=== PATIENT | female | born 1965 | race Caucasian/White ===

== ENCOUNTER 2019-09-21 03:22 | Emergency (ER) | payer OTHER ==
[~2019-09-21] VITALS: Ht 177.8 cm; Wt 118.0 kg
[2019-09-21] MEDS ORDERED: KETOROLAC 30 MG/1 ML ONE (03:34)
[2019-09-21] MEDS ORDERED: ONDANSETRON 2MG/ML, 2ML ONE (03:34)
[2019-09-21] MEDS ORDERED: HYDROmorphone 1 MG/ML, 1ML INJ ONE ×3 (03:34→06:39)
[2019-09-21] MEDS: HYDROmorphone 2 MG/ML, 1ML IVPush PRN ×2 (03:51→05:30)
--- NOTE | 2019-09-21 03:56 | NUR ---
Patient presents to ER c/o acute L quad abd pain x 2 hours. +N/V. Denies diarrhea. Patient is in obvious distress. Respirations even and unlabored. Patient is screaming upon entering room.
[2019-09-21] MEDS ORDERED: SODIUM CHLORIDE FLUSH 10ML SYR IVF ONE (04:00)
[2019-09-21] MEDS ORDERED: KETOROLAC 30 MG/1 ML IVPush ONE (04:00)
[2019-09-21] MEDS ORDERED: ONDANSETRON 2MG/ML, 2ML IVPush ONE (04:00)
[2019-09-21 04:01] LABS: MEAN CORPUSCULAR HEMOGLOBIN 27.1 pg (27.0-34.8); MEAN CORPUSCULAR HGB CONC 32.9 g/dL (32.4-35.8); MEAN CORPUSCULAR VOLUME 82.3 fL (80-100); MEAN PLATELET VOLUME 9.2 fL (7.4-10.4); PLATELET COUNT 253 x10^3/uL (130-400); RED BLOOD COUNT 5.45 x10^6/uL (3.82-5.3); RED CELL DISTRIBUTION WIDTH 14.9 % (9.6-15.2)
[2019-09-21 04:13] LABS: ALANINE AMINOTRANSFERASE 45 U/L (12-78); ALBUMIN 4.1 g/dL (3.4-5.0); ANION GAP 11 mmol/L (5-15); CALCIUM 9.6 mg/dL (8.5-10.1); CHLORIDE 99 mmol/L (98-107); CREATININE 1.18 mg/dL (0.55-1.02)
[2019-09-21 04:15] LABS: ALKALINE PHOSPHATASE 122 U/L (45-117); BILIRUBIN,TOTAL 0.8 mg/dL (0.2-1.0); TOTAL PROTEIN 8.4 g/dL (6.4-8.2)
[2019-09-21 04:23] LABS: BASOPHILS # (AUTO) 0.02 x10^3/uL (0-0.1); BASOPHILS % (AUTO) 0 % (0-1); EOSINOPHILS # (AUTO) 0.04 x10^3/uL (0-0.4); EOSINOPHILS % (AUTO) 0 % (1-7); LYMPHOCYTES # (AUTO) 0.57 x10^3/uL (1-3.4); LYMPHOCYTES % (AUTO) 4 % (22-44); MD SCAN; MONOCYTES # (AUTO) 0.05 x10^3/uL (0.2-0.8); MONOCYTES % (AUTO) 0 % (2-9); NEUTROPHILS # (AUTO) 12.75 x10^3/uL (1.8-6.8); NEUTROPHILS % (AUTO) 95 % (42-75)
[2019-09-21] MEDS ORDERED: SODIUM CHLORIDE 0.9% 1,000ML IVBOLUS ONE (05:00)
[2019-09-21 05:47] LABS: MICROSCOPIC NOT IND
[2019-09-21] MEDS ORDERED: HYDROmorphone 1 MG/ML, 1ML INJ IV STA (06:37)
--- NOTE | 2019-09-21 06:53 | NUR ---
BEDSIDE REPORT FROM LIZZETTE FELIX, PT RESTING IN [facility] WITH FAMILY AT BEDSIDE. ON MONITOR, CALL LIGHT WITHIN REACH.
[2019-09-21 06:59] VITALS: BP 168/79
--- NOTE | 2019-09-21 07:50 | NUR ---
MD AT BEDSIDE TO EXPLAIN DX AND POC TO PT
== END 2019-09-21 08:08 | disposition home or self-care (01) ==
LOC: ED 04:47
DX: E11.65 Type 2 diabetes mellitus with hyperglycemia (principal); R10.32 Left lower quadrant pain; R19.7 Diarrhea, unspecified; R11.2 Nausea with vomiting, unspecified; R10.9 Unspecified abdominal pain; Z90.710 Acquired absence of both cervix and uterus
CPT/HCPCS: 36415; 74176; 80053; 81003; 83690; 85025; 96361; 96374; 96375; 96376; 99284; J1170; J1885; J2405; J7030

== ENCOUNTER 2019-09-24 00:26 | Inpatient (IN) | payer OTHER ==
[~2019-09-24] VITALS: Ht 177.8 cm; Wt 117.5 kg
[2019-09-24] MEDS ORDERED: ONDANSETRON 2MG/ML, 2ML ONE (00:53)
[2019-09-24] MEDS ORDERED: MORPHINE SULFATE 4 MG/ML, 1ML ONE ×2 (00:53→08:45)
[2019-09-24] MEDS ORDERED: ONDANSETRON 2MG/ML, 2ML IVPush ONE (01:00)
[2019-09-24] MEDS: MORPHINE SULFATE 4 MG/ML, 1ML IVPush PRN ×2 (01:11→08:50)
--- NOTE | 2019-09-24 01:32 | NUR ---
PT NOTED TO HAVE O2 SAT IN 88%, 2 L O2 VIA NC APPLIED TO PT, SATURATIONS INCREASED TO 96%
[2019-09-24 01:34] LABS: ALANINE AMINOTRANSFERASE 34 U/L (12-78); ALBUMIN 2.1 g/dL (3.4-5.0); ANION GAP 14 mmol/L (5-15); CALCIUM 7.9 mg/dL (8.5-10.1); CHLORIDE 94 mmol/L (98-107); CREATININE 2.95 mg/dL (0.55-1.02)
[2019-09-24 01:36] LABS: ALKALINE PHOSPHATASE 155 U/L (45-117); BILIRUBIN,TOTAL 1.9 mg/dL (0.2-1.0); TOTAL PROTEIN 6.5 g/dL (6.4-8.2)
[2019-09-24] MEDS ORDERED: REGULAR INSULIN 100 UNITS in SODIUM CHLORIDE 0.9% 99 ML IV PRN (01:44)
--- NOTE | 2019-09-24 01:45 | NUR ---
LAB CALLED AND STATES THAT RESULTS ARE QUESTIONABLE SO A LABORER CHEMICAL PROCESSING WILL BE COMING TO REDRAW.
--- NOTE | 2019-09-24 01:51 | NUR ---
Break RN: assumed care of pt for Primary RN lunch break only. Dr. Conrad at bedside for recheck
[2019-09-24] MEDS ORDERED: SODIUM CHLORIDE 0.9% 1,000ML IVBOLUS ONE (02:00)
--- NOTE | 2019-09-24 02:16 | NUR ---
Break RN: CXR has been to bedside. Per Dr. Conrad, OK for pt to go to US prior to insulin administration. pt to US via gurney. pt son at bedside
[2019-09-24 02:39] LABS: MEAN CORPUSCULAR HEMOGLOBIN 27.2 pg (27.0-34.8); MEAN CORPUSCULAR HGB CONC 33.3 g/dL (32.4-35.8); RED BLOOD COUNT 4.81 x10^6/uL (3.82-5.3); RED CELL DISTRIBUTION WIDTH 15.3 % (9.6-15.2)
[2019-09-24 02:42] LABS: MD YES
[2019-09-24 02:45] LABS: BAND#(MANUAL) 0.97 x10^3/uL; BANDS%(MANUAL) 7 % (0-7); LYMPH#(MANUAL) 0.56 x10^3/uL (1-3.4); LYMPHS% (MANUAL) 4 % (22-44); METAMYELOCYTES# (MANUAL) 0.14 x10^3/uL (0-0); METAMYELOCYTES% (MANUAL) 1 % (0-1); MONOS% (MANUAL) 5 % (2-9); SEG#(MANUAL) 11.54 x10^3/uL (1.8-6.8); SEGS% (MANUAL) 83 % (42-75)
[2019-09-24] MEDS ORDERED: SODIUM CHLORIDE 0.9% 1,000 ML IV ONE (02:46)
[2019-09-24 02:48] LABS: ANISOCYTOSIS 1+
[2019-09-24 02:50] LABS: <PLATELET ESTIMATE> DECREASED; LARGE PLATELETS 1+; PMNS WITH VACUOLES 1+; POLYCHROMASIA 1+
--- NOTE | 2019-09-24 02:51 | NUR ---
LAB CALLS WITH MARY 41.15. SOCRATES 35MD AWARE
[2019-09-24 02:53] LABS: PLATELET COUNT 35 x10^3/uL (130-400)
[2019-09-24 02:54] LABS: TROPONIN I < 0.015 ng/mL (0.000-0.045)
--- NOTE | 2019-09-24 02:55 | NUR ---
BGL 418
--- NOTE | 2019-09-24 02:56 | NUR ---
PT STRAIGHT CATH, URINE SAMPLE OBTAINED AND WALKED TO LAB
[2019-09-24] MEDS ORDERED: PIPERACILLIN/TAZO/PMX 3.375GM 50 ML ONE (02:57)
[2019-09-24] MEDS ORDERED: PIPERACILLIN/TAZO/PMX 3.375GM 50 ML IV ONE (03:00)
[2019-09-24] MEDS ORDERED: VANCOMYCIN PER PHARMACY MC PRN ×2 (03:00→04:00)
[2019-09-24] MEDS ORDERED: VANCOMYCIN 1,500 MG in SODIUM CHLORIDE 0.9% 250 ML IV ONE (03:00)
[2019-09-24 03:06] LABS: ACETONE, SERUM Small (20mg/dL) (Negative)
[2019-09-24 03:11] LABS: INTERNATIONAL NORMALIZED RATIO 1.13 (0.93-1.1)
[2019-09-24 03:20] LABS: MICROSCOPIC INDICATED
[2019-09-24] MEDS ORDERED: BISACODYL 10 MG SUPP PR PRN (03:30)
[2019-09-24] MEDS ORDERED: PROMETHAZINE 25 MG/ML, 1ML IM PRN (03:30)
[2019-09-24] MEDS ORDERED: hydrALAzine 20 MG/ML, 1ML IVPush PRN (03:30)
[2019-09-24] MEDS ORDERED: ACETAMINOPHEN 325 MG TABLET PO PRN (03:30)
[2019-09-24] MEDS ORDERED: HEPARIN 5,000 UNITS/ML, 1ML SQ SCH (03:30)
[2019-09-24] MEDS ORDERED: DOCUSATE 100 MG CAPSULE PO PRN (03:30)
[2019-09-24] MEDS ORDERED: POLYETHYLENE GLYCOL 17 GM PACKET PO PRN (03:30)
[2019-09-24] MEDS ORDERED: ONDANSETRON ODT 4 MG PO PRN (03:30)
[2019-09-24] MEDS ORDERED: morphine SULFATE 10 MG/ML, 1ML IVPush PRN (03:30)
[2019-09-24] MEDS ORDERED: ONDANSETRON 2MG/ML, 2ML IVPush PRN (03:30)
[2019-09-24] MEDS ORDERED: HEPARIN 5,000 UNITS/ML, 1ML ONE (03:47)
[2019-09-24] MEDS ORDERED: CEFTRIAXONE PMX 2GM/50ML 50 ML ONE (03:47)
[2019-09-24 03:52] LABS: HCT (SEDRATE) 39.4 % (34.6-47.8)
--- NOTE | 2019-09-24 03:53 | NUR ---
BGL 413
--- NOTE | 2019-09-24 03:55 | NUR ---
INSULIN DRIP STOPPED AND DISCONTINUED AT THIS TIME PER DC ORDER.
[2019-09-24] MEDS ORDERED: CEFTRIAXONE PMX 2GM/50ML 50 ML IV SCH (04:00)
[2019-09-24] MEDS ORDERED: INSULIN GLARGINE 100 UNITS/ML, PEN SQ-INSULIN SCH ×2 (04:00→21:00)
[2019-09-24] MEDS: SODIUM CHLORIDE 0.9% 1,000 ML IV SCH ×3 (04:02→20:50)
--- NOTE | 2019-09-24 04:08 | NUR ---
HUMALOG PEN AND LANTUS PEN REQUESTED FROM PHARMACY
[2019-09-24 04:24] LABS: C-REACTIVE PROTEIN, QUANT > 19.00 mg/dL (0.02-0.49)
--- NOTE | 2019-09-24 04:29 | NUR ---
PLACED CALL TO DR LANDEROS TO CONFIRM PT BGL 414 FOLLOWING DC OF INSULIN DRIP, HE STATES PT CAN RECEIVE 10 UNITS HUMALOG AND 10 UNITS LANTUS PEN AT THIS TIME
--- NOTE | 2019-09-24 04:41 | NUR ---
Ld ballard, [facility] - [phone]
[2019-09-24] MEDS: INSULIN LISPRO 100 UNITS/ML, PEN SQ-INSULIN SCH ×5 (04:54→20:26)
--- NOTE | 2019-09-24 07:10 | NUR ---
RECIEVED REPORT FROM REY TORRES RN. PT TAKEN TO IMAGING IN STABLE CONDITION.
[2019-09-24] MEDS ORDERED: DEXTROSE 50%, 50ML SYRINGE IVPush PRN (07:30)
[2019-09-24] MEDS ORDERED: GLUCAGON 1 MG IM PRN (07:30)
[2019-09-24] MEDS ORDERED: DEXTROSE 4 GM TAB.CHEW PO PRN (07:30)
[2019-09-24] MEDS ORDERED: MAGNESIUM SULFATE PMX 2 GM/50 ML ONE (07:59)
[2019-09-24] MEDS: MAGNESIUM SULFATE PMX 2GM/50ML 50 ML IV SCH ×2 (08:10→13:18)
--- NOTE | 2019-09-24 08:15 | NUR ---
[facility] MEDICATED PER MAY.
[2019-09-24] MEDS ORDERED: PHARMACOKINETIC CONSULTATION MC ONE (08:30)
[2019-09-24] MEDS ORDERED: PHARMACOKINETIC MONITORING MC PRN (08:30)
--- NOTE | 2019-09-24 08:41 | NUR ---
PT REFUSING BREAKFAST THIS AM. PT REPOSITIONED FOR COMFORT.
--- NOTE | 2019-09-24 08:45 | NUR ---
YELLOW SLIP SENT TO PHARMACY FOR BICARB GTT.
--- NOTE | 2019-09-24 08:52 | NUR ---
PT C/O PAIN 12/16. MEDICATED PER MAY. PT TAKEN TO MRI IN STABLE CONDITION.
--- NOTE | 2019-09-24 09:22 | NUR ---
REPORT GIVEN TO JOSE BAPTISTE RN. ALL QUESTIONS ANSWERED. ONCE PT RETURNS FROM MRI PT RTG.
--- NOTE | 2019-09-24 09:40 | NUR ---
Break RN note: Pt back from MRI, resting in bed, NADN.
[2019-09-24] MEDS: SODIUM BICARBONATE 8.4% 75 MEQ in SODIUM CHLORIDE 0.45% 1,000 ML IV SCH ×2 (10:11→21:43)
[2019-09-24] MEDS: INSULIN GLARGINE 100 UNITS/ML, PEN SQ-INSULIN SCH ×2 (10:11→20:26)
[2019-09-24] MEDS: SODIUM CHLORIDE FLUSH 10ML SYR IVF SCH ×2 (10:11→20:27)
--- NOTE | 2019-09-24 10:15 | NUR ---
CALLED AND SPOKE W/ DR. SANTIZO IN REGARDS TO TEMP CATHETER PLACEMENT. PER DR. SANTIZO CANCEL ORDER. PT HAS NO NEED FOR HD AT THIS TIME.
[2019-09-24 11:12] VITALS: BP 131/79
[2019-09-24] MEDS ORDERED: PHARMACY MAY ADJ FOR RENAL FX MC PRN (12:30)
[2019-09-24] MEDS: MEROPENEM 1 GM in SODIUM CHLORIDE 0.9% 100 ML IV SCH ×2 (13:18→21:43)
[2019-09-24 13:43] LABS: ANION GAP 9 mmol/L (5-15); CALCIUM 7.7 mg/dL (8.5-10.1); CHLORIDE 98 mmol/L (98-107)
[2019-09-24 13:44] LABS: CREATININE 3.09 mg/dL (0.55-1.02)
[2019-09-24 15:09] VITALS: BP 183/87
[2019-09-24] MEDS ORDERED: METF10007 PO (18:05)
[2019-09-24] MEDS ORDERED: GLIP5TAB10 PO (18:05)
[2019-09-24] MEDS ORDERED: ROPI0.254 PO (18:05)
[2019-09-24] MEDS ORDERED: LISI5TAB7 PO (18:05)
[2019-09-24] MEDS ORDERED: AMIT25TA PO (18:05)
[2019-09-24] MEDS ORDERED: SIMV20TA19 PO (18:05)
[2019-09-24] MEDS ORDERED: GABA-826 PO (18:05)
[2019-09-24 19:18] VITALS: BP 171/76
[2019-09-25 01:27] VITALS: BP 126/73
[2019-09-25] MEDS: MEROPENEM 1 GM in SODIUM CHLORIDE 0.9% 100 ML IV SCH (04:11)
[2019-09-25] MEDS: SODIUM CHLORIDE 0.9% 1,000 ML IV SCH (04:16)
[2019-09-25] MEDS: OXYcodone IR 5MG TABLET PO PRN ×2 (05:11→20:30)
[2019-09-25] MEDS ORDERED: VANCOMYCIN 1,400 MG in SODIUM CHLORIDE 0.9% 250 ML IV SCH (06:00)
[2019-09-25] MEDS: SODIUM BICARBONATE 8.4% 75 MEQ in SODIUM CHLORIDE 0.45% 1,000 ML IV SCH (06:15)
[2019-09-25 08:10] VITALS: BP 132/65
[2019-09-25 09:23] LABS: ALANINE AMINOTRANSFERASE 39 U/L (12-78); ALBUMIN 1.6 g/dL (3.4-5.0); ANION GAP 10 mmol/L (5-15); CALCIUM 7.8 mg/dL (8.5-10.1); CHLORIDE 102 mmol/L (98-107); CREATININE 2.98 mg/dL (0.55-1.02)
[2019-09-25 09:26] LABS: ALKALINE PHOSPHATASE 117 U/L (45-117); BILIRUBIN,TOTAL 1.4 mg/dL (0.2-1.0); CHOL/HDL RATIO 11.6; CHOLESTEROL, TOTAL 93 mg/dL (140-239); HDL CHOL % 9 % (28-40); HDL CHOLESTEROL (DIRECT) 8 mg/dL (40-60); LDL CHOLESTEROL,CALCULATED 38 mg/dL (54-169); LDL/HDL RATIO 4.8 (0.5-3.0); TOTAL PROTEIN 5.6 g/dL (6.4-8.2); TRIGLYCERIDES 233 mg/dL (50-200); VLDL CHOLESTEROL 47 mg/dL (0-25)
[2019-09-25] MEDS: SODIUM CHLORIDE FLUSH 10ML SYR IVF SCH ×2 (09:27→20:29)
[2019-09-25] MEDS: INSULIN LISPRO 100 UNITS/ML, PEN SQ-INSULIN SCH ×4 (09:34→20:32)
[2019-09-25] MEDS: INSULIN GLARGINE 100 UNITS/ML, PEN SQ-INSULIN SCH ×2 (09:35→20:33)
[2019-09-25 09:49] LABS: MEAN CORPUSCULAR HEMOGLOBIN 26.6 pg (27.0-34.8); MEAN CORPUSCULAR HGB CONC 32.2 g/dL (32.4-35.8); MEAN PLATELET VOLUME 9.8 fL (7.4-10.4); RED BLOOD COUNT 4.21 x10^6/uL (3.82-5.3); RED CELL DISTRIBUTION WIDTH 16.1 % (9.6-15.2)
[2019-09-25 09:51] LABS: PLATELET COUNT 26 x10^3/uL (130-400)
[2019-09-25 09:52] LABS: MD YES
[2019-09-25 09:55] LABS: BAND#(MANUAL) 1.15 x10^3/uL; BANDS%(MANUAL) 10 % (0-7); LYMPH#(MANUAL) 0.92 x10^3/uL (1-3.4); LYMPHS% (MANUAL) 8 % (22-44); MONOS#(MANUAL) 0.81 x10^3/uL (0.3-2.7); MONOS% (MANUAL) 7 % (2-9); SEG#(MANUAL) 8.63 x10^3/uL (1.8-6.8); SEGS% (MANUAL) 75 % (42-75)
[2019-09-25 09:56] LABS: ANISOCYTOSIS 1+
[2019-09-25 09:57] LABS: <PLATELET ESTIMATE> DECREASED
[2019-09-25 09:58] LABS: LARGE PLATELETS 1+; TOXIC GRAN 1+
[2019-09-25 13:17] VITALS: BP 136/66
[2019-09-25] MEDS: ASA/APAP/ CAFFEINE TABLET PO PRN (15:13)
[2019-09-25] MEDS: MEROPENEM 500 MG in SODIUM CHLORIDE 0.9% 100 ML IV SCH (16:13)
[2019-09-25 19:33] VITALS: BP 147/85
[2019-09-26 01:40] VITALS: BP 147/74
[2019-09-26] MEDS: MEROPENEM 500 MG in SODIUM CHLORIDE 0.9% 100 ML IV SCH ×2 (03:59→15:37)
[2019-09-26 06:55] LABS: ALBUMIN 1.6 g/dL (3.4-5.0); ANION GAP 11 mmol/L (5-15); CALCIUM 7.9 mg/dL (8.5-10.1); CHLORIDE 99 mmol/L (98-107)
[2019-09-26 07:01] LABS: ALANINE AMINOTRANSFERASE 39 U/L (12-78); ALKALINE PHOSPHATASE 112 U/L (45-117); BILIRUBIN,TOTAL 1.6 mg/dL (0.2-1.0); CREATININE 2.59 mg/dL (0.55-1.02); TOTAL PROTEIN 6.1 g/dL (6.4-8.2)
[2019-09-26 07:22] LABS: C-REACTIVE PROTEIN, QUANT > 19.00 mg/dL (0.02-0.49)
[2019-09-26] MEDS: ASA/APAP/ CAFFEINE TABLET PO PRN (08:17)
[2019-09-26] MEDS: INSULIN GLARGINE 100 UNITS/ML, PEN SQ-INSULIN SCH ×2 (08:18→21:05)
[2019-09-26] MEDS: OXYcodone IR 5MG TABLET PO PRN ×2 (08:18→15:50)
[2019-09-26] MEDS: SODIUM CHLORIDE FLUSH 10ML SYR IVF SCH ×2 (08:19→21:06)
[2019-09-26] MEDS: INSULIN LISPRO 100 UNITS/ML, PEN SQ-INSULIN SCH ×4 (08:19→21:06)
[2019-09-26] MEDS ORDERED: SODIUM BICARBONATE 8.4% 75 MEQ in SODIUM CHLORIDE 0.45% 1,000 ML IV SCH (09:30)
[2019-09-26 10:46] LABS: MD YES; MEAN CORPUSCULAR HEMOGLOBIN 26.9 pg (27.0-34.8); MEAN CORPUSCULAR HGB CONC 32.5 g/dL (32.4-35.8); MEAN PLATELET VOLUME 10.1 fL (7.4-10.4); RED BLOOD COUNT 4.22 x10^6/uL (3.82-5.3); RED CELL DISTRIBUTION WIDTH 16.1 % (9.6-15.2)
[2019-09-26 10:49] LABS: ANISOCYTOSIS 1+; LYMPH#(MANUAL) 0.75 x10^3/uL (1-3.4); LYMPHS% (MANUAL) 7 % (22-44); MONOS#(MANUAL) 0.21 x10^3/uL (0.3-2.7); MONOS% (MANUAL) 2 % (2-9); PLATELET COUNT 36 x10^3/uL (130-400); SEG#(MANUAL) 9.74 x10^3/uL (1.8-6.8); SEGS% (MANUAL) 91 % (42-75)
[2019-09-26 10:50] LABS: HCT (SEDRATE) 34.9 % (34.6-47.8)
[2019-09-26 10:52] LABS: <PLATELET ESTIMATE> DECREASED; <PLT MORPHOLOGY> NORMAL PLT MORPH
[2019-09-26 14:15] VITALS: BP 150/77
[2019-09-26] MEDS ORDERED: VANCOMYCIN 1,400 MG in SODIUM CHLORIDE 0.9% 250 ML IV SCH (17:00)
[2019-09-26 19:51] VITALS: BP 134/66
[2019-09-27 02:49] VITALS: BP 169/87
[2019-09-27] MEDS: MEROPENEM 500 MG in SODIUM CHLORIDE 0.9% 100 ML IV SCH ×2 (03:30→16:48)
[2019-09-27 06:37] VITALS: BP 158/83
[2019-09-27 06:39] LABS: ALBUMIN 1.4 g/dL (3.4-5.0); ANION GAP 8 mmol/L (5-15); CALCIUM 7.8 mg/dL (8.5-10.1); CHLORIDE 100 mmol/L (98-107)
[2019-09-27 06:50] LABS: ALANINE AMINOTRANSFERASE 29 U/L (12-78); ALKALINE PHOSPHATASE 98 U/L (45-117); BILIRUBIN,TOTAL 1.3 mg/dL (0.2-1.0); CREATININE 2.13 mg/dL (0.55-1.02); TOTAL PROTEIN 5.7 g/dL (6.4-8.2)
[2019-09-27 07:05] LABS: BASOPHILS # (AUTO) 0.07 x10^3/uL (0-0.1); BASOPHILS % (AUTO) 1 % (0-1); EOSINOPHILS # (AUTO) 0.05 x10^3/uL (0-0.4); EOSINOPHILS % (AUTO) 0 % (1-7); LYMPHOCYTES # (AUTO) 0.67 x10^3/uL (1-3.4); LYMPHOCYTES % (AUTO) 6 % (22-44); MD MORPH REVIEW ONLY; MEAN CORPUSCULAR HGB CONC 33.3 g/dL (32.4-35.8); MONOCYTES % (AUTO) 4 % (2-9); NEUTROPHILS # (AUTO) 10.34 x10^3/uL (1.8-6.8); NEUTROPHILS % (AUTO) 89 % (42-75); PLATELET COUNT 60 x10^3/uL (130-400); RED BLOOD COUNT 4.03 x10^6/uL (3.82-5.3); RED CELL DISTRIBUTION WIDTH 15.9 % (9.6-15.2)
[2019-09-27 07:06] LABS: <PLATELET ESTIMATE> DECREASED; <PLT MORPHOLOGY> NORMAL PLT MORPH; ANISOCYTOSIS 1+
[2019-09-27 07:21] LABS: HCT (SEDRATE) 32.8 % (34.6-47.8)
[2019-09-27] MEDS: INSULIN LISPRO 100 UNITS/ML, PEN SQ-INSULIN SCH ×4 (07:47→20:45)
[2019-09-27] MEDS: SODIUM CHLORIDE FLUSH 10ML SYR IVF SCH ×2 (07:48→19:22)
[2019-09-27] MEDS: INSULIN GLARGINE 100 UNITS/ML, PEN SQ-INSULIN SCH ×2 (07:48→20:46)
[2019-09-27] MEDS: OXYcodone IR 5MG TABLET PO PRN ×2 (08:01→19:22)
[2019-09-27] MEDS: ASA/APAP/ CAFFEINE TABLET PO PRN (08:05)
[2019-09-27 12:12] VITALS: BP 142/62
[2019-09-27 19:17] VITALS: BP 162/80
[2019-09-27] MEDS: CEFAZOLIN 2,000 MG in SODIUM CHLORIDE 0.9% 50 ML IV SCH (20:45)
[2019-09-28 01:06] VITALS: BP 145/76
[2019-09-28] MEDS: OXYcodone IR 5MG TABLET PO PRN ×2 (04:50→17:14)
[2019-09-28 05:55] LABS: HCT (SEDRATE) 34.2 % (34.6-47.8)
[2019-09-28 06:01] LABS: MEAN CORPUSCULAR HEMOGLOBIN 26.7 pg (27.0-34.8); MEAN CORPUSCULAR HGB CONC 32.8 g/dL (32.4-35.8); MEAN PLATELET VOLUME 9.7 fL (7.4-10.4); PLATELET COUNT 107 x10^3/uL (130-400); RED BLOOD COUNT 4.21 x10^6/uL (3.82-5.3); RED CELL DISTRIBUTION WIDTH 15.7 % (9.6-15.2)
[2019-09-28 06:13] LABS: CHLORIDE 102 mmol/L (98-107)
[2019-09-28 06:30] LABS: BASOPHILS % (AUTO) 0 % (0-1); EOSINOPHILS # (AUTO) 0.07 x10^3/uL (0-0.4); EOSINOPHILS % (AUTO) 0 % (1-7); LYMPHOCYTES # (AUTO) 0.74 x10^3/uL (1-3.4); LYMPHOCYTES % (AUTO) 5 % (22-44); MD SCAN; MONOCYTES # (AUTO) 0.38 x10^3/uL (0.2-0.8); MONOCYTES % (AUTO) 3 % (2-9); NEUTROPHILS # (AUTO) 14.31 x10^3/uL (1.8-6.8); NEUTROPHILS % (AUTO) 92 % (42-75)
[2019-09-28 06:43] LABS: ALANINE AMINOTRANSFERASE 28 U/L (12-78); ALBUMIN 1.5 g/dL (3.4-5.0); ALKALINE PHOSPHATASE 111 U/L (45-117); ANION GAP 8 mmol/L (5-15); BILIRUBIN,TOTAL 1.2 mg/dL (0.2-1.0); CALCIUM 7.9 mg/dL (8.5-10.1); CREATININE 1.67 mg/dL (0.55-1.02)
[2019-09-28] MEDS: INSULIN LISPRO 100 UNITS/ML, PEN SQ-INSULIN SCH ×4 (07:00→20:47)
[2019-09-28 08:01] VITALS: BP 129/60
[2019-09-28] MEDS: INSULIN GLARGINE 100 UNITS/ML, PEN SQ-INSULIN SCH ×2 (09:53→20:48)
[2019-09-28] MEDS: CEFAZOLIN 2,000 MG in SODIUM CHLORIDE 0.9% 50 ML IV SCH (10:48)
[2019-09-28] MEDS: SODIUM CHLORIDE FLUSH 10ML SYR IVF SCH ×2 (10:48→20:47)
[2019-09-28 13:42] VITALS: BP 131/69
[2019-09-28] MEDS: CEFTRIAXONE PMX 2GM/50ML 50 ML IV SCH (13:43)
[2019-09-28 19:22] VITALS: BP 149/67
[2019-09-29 00:50] VITALS: BP 144/77
[2019-09-29] MEDS: OXYcodone IR 5MG TABLET PO PRN (05:49)
[2019-09-29 06:48] VITALS: BP 129/72
[2019-09-29 07:45] LABS: MEAN CORPUSCULAR HEMOGLOBIN 26.5 pg (27.0-34.8); MEAN CORPUSCULAR HGB CONC 32.2 g/dL (32.4-35.8); MEAN PLATELET VOLUME 9.5 fL (7.4-10.4); PLATELET COUNT 149 x10^3/uL (130-400); RED BLOOD COUNT 3.77 x10^6/uL (3.82-5.3); RED CELL DISTRIBUTION WIDTH 15.7 % (9.6-15.2)
[2019-09-29 07:49] LABS: ALANINE AMINOTRANSFERASE 17 U/L (12-78); ALBUMIN 1.4 g/dL (3.4-5.0); ANION GAP 6 mmol/L (5-15); CALCIUM 7.9 mg/dL (8.5-10.1); CHLORIDE 102 mmol/L (98-107)
[2019-09-29 07:56] LABS: ALKALINE PHOSPHATASE 108 U/L (45-117); BILIRUBIN,TOTAL 0.6 mg/dL (0.2-1.0); CREATININE 1.32 mg/dL (0.55-1.02); TOTAL PROTEIN 5.6 g/dL (6.4-8.2)
[2019-09-29] MEDS: INSULIN GLARGINE 100 UNITS/ML, PEN SQ-INSULIN SCH ×2 (07:58→20:53)
[2019-09-29] MEDS: INSULIN LISPRO 100 UNITS/ML, PEN SQ-INSULIN SCH ×4 (07:58→20:54)
[2019-09-29] MEDS: SODIUM CHLORIDE FLUSH 10ML SYR IVF SCH ×2 (07:59→20:55)
[2019-09-29 08:27] LABS: BASOPHILS % (AUTO) 0 % (0-1); EOSINOPHILS # (AUTO) 0.08 x10^3/uL (0-0.4); EOSINOPHILS % (AUTO) 1 % (1-7); LYMPHOCYTES # (AUTO) 0.75 x10^3/uL (1-3.4); LYMPHOCYTES % (AUTO) 6 % (22-44); MD SCAN; MONOCYTES # (AUTO) 0.36 x10^3/uL (0.2-0.8); MONOCYTES % (AUTO) 3 % (2-9); NEUTROPHILS # (AUTO) 12.49 x10^3/uL (1.8-6.8); NEUTROPHILS % (AUTO) 91 % (42-75)
[2019-09-29 12:51] VITALS: BP 154/72
[2019-09-29] MEDS: CEFTRIAXONE PMX 2GM/50ML 50 ML IV SCH (14:02)
[2019-09-29 20:12] VITALS: BP 170/76
[2019-09-30 00:58] VITALS: BP 168/75
[2019-09-30] MEDS: OXYcodone IR 5MG TABLET PO PRN ×2 (01:05→23:03)
[2019-09-30 05:19] LABS: ANION GAP 4 mmol/L (5-15); CALCIUM 7.5 mg/dL (8.5-10.1); CHLORIDE 103 mmol/L (98-107); CREATININE 1.29 mg/dL (0.55-1.02)
[2019-09-30 05:22] LABS: BASOPHILS # (AUTO) 0.07 x10^3/uL (0-0.1); BASOPHILS % (AUTO) 1 % (0-1); EOSINOPHILS # (AUTO) 0.15 x10^3/uL (0-0.4); EOSINOPHILS % (AUTO) 1 % (1-7); LYMPHOCYTES # (AUTO) 1.18 x10^3/uL (1-3.4); LYMPHOCYTES % (AUTO) 9 % (22-44); MD NO; MEAN CORPUSCULAR HEMOGLOBIN 26.9 pg (27.0-34.8); MEAN PLATELET VOLUME 10.2 fL (7.4-10.4); MONOCYTES # (AUTO) 0.18 x10^3/uL (0.2-0.8); MONOCYTES % (AUTO) 1 % (2-9); NEUTROPHILS # (AUTO) 11.11 x10^3/uL (1.8-6.8); NEUTROPHILS % (AUTO) 88 % (42-75); PLATELET COUNT 186 x10^3/uL (130-400); RED BLOOD COUNT 3.63 x10^6/uL (3.82-5.3); RED CELL DISTRIBUTION WIDTH 15.6 % (9.6-15.2)
[2019-09-30 07:01] VITALS: BP 163/73
[2019-09-30] MEDS: INSULIN LISPRO 100 UNITS/ML, PEN SQ-INSULIN SCH ×4 (07:44→20:46)
[2019-09-30] MEDS: SODIUM CHLORIDE FLUSH 10ML SYR IVF SCH ×2 (08:13→20:44)
[2019-09-30] MEDS: AMLODIPINE 5 MG TABLET PO SCH (08:13)
[2019-09-30] MEDS: INSULIN GLARGINE 100 UNITS/ML, PEN SQ-INSULIN SCH ×2 (08:16→20:45)
[2019-09-30 12:02] VITALS: BP 146/70
[2019-09-30] MEDS: CEFTRIAXONE PMX 2GM/50ML 50 ML IV SCH (14:38)
[2019-09-30 19:26] VITALS: BP 150/74
[2019-10-01 01:04] VITALS: BP 127/75
[2019-10-01] MEDS: OXYcodone IR 5MG TABLET PO PRN (07:52)
[2019-10-01] MEDS: AMLODIPINE 5 MG TABLET PO SCH (08:10)
[2019-10-01] MEDS: INSULIN LISPRO 100 UNITS/ML, PEN SQ-INSULIN SCH ×4 (08:11→20:42)
[2019-10-01 08:31] VITALS: BP_SYST 151
[2019-10-01] MEDS: SODIUM CHLORIDE FLUSH 10ML SYR IVF SCH ×2 (09:34→20:42)
[2019-10-01] MEDS: INSULIN GLARGINE 100 UNITS/ML, PEN SQ-INSULIN SCH ×2 (09:35→20:42)
[2019-10-01 12:31] VITALS: BP 125/66
[2019-10-01] MEDS: CEFTRIAXONE PMX 2GM/50ML 50 ML IV SCH (15:57)
[2019-10-01 18:27] VITALS: BP 136/75
[2019-10-01] MEDS: ASA/APAP/ CAFFEINE TABLET PO PRN (20:41)
[2019-10-02 00:29] VITALS: BP 130/65
[2019-10-02] MEDS: OXYcodone IR 5MG TABLET PO PRN ×2 (00:31→20:49)
[2019-10-02 02:41] LABS: ALANINE AMINOTRANSFERASE 13 U/L (12-78); ALBUMIN 1.4 g/dL (3.4-5.0); ANION GAP 7 mmol/L (5-15); BASOPHILS # (AUTO) 0.16 x10^3/uL (0-0.1); BASOPHILS % (AUTO) 1 % (0-1); CALCIUM 7.4 mg/dL (8.5-10.1); CHLORIDE 101 mmol/L (98-107); CREATININE 1.28 mg/dL (0.55-1.02); EOSINOPHILS # (AUTO) 0.24 x10^3/uL (0-0.4); EOSINOPHILS % (AUTO) 2 % (1-7); LYMPHOCYTES # (AUTO) 1.11 x10^3/uL (1-3.4); LYMPHOCYTES % (AUTO) 10 % (22-44); MD NO; MEAN CORPUSCULAR HEMOGLOBIN 26.9 pg (27.0-34.8); MEAN CORPUSCULAR HGB CONC 32.7 g/dL (32.4-35.8); MEAN PLATELET VOLUME 9.1 fL (7.4-10.4); MONOCYTES # (AUTO) 0.51 x10^3/uL (0.2-0.8); MONOCYTES % (AUTO) 5 % (2-9); NEUTROPHILS # (AUTO) 9.24 x10^3/uL (1.8-6.8); NEUTROPHILS % (AUTO) 82 % (42-75); PLATELET COUNT 242 x10^3/uL (130-400); RED BLOOD COUNT 3.57 x10^6/uL (3.82-5.3); RED CELL DISTRIBUTION WIDTH 15.6 % (9.6-15.2)
[2019-10-02 02:43] LABS: ALKALINE PHOSPHATASE 110 U/L (45-117); BILIRUBIN,TOTAL 0.4 mg/dL (0.2-1.0); TOTAL PROTEIN 5.8 g/dL (6.4-8.2)
[2019-10-02] MEDS: AMLODIPINE 5 MG TABLET PO SCH (07:51)
[2019-10-02] MEDS: INSULIN LISPRO 100 UNITS/ML, PEN SQ-INSULIN SCH ×4 (07:52→20:50)
[2019-10-02] MEDS: INSULIN GLARGINE 100 UNITS/ML, PEN SQ-INSULIN SCH ×2 (07:52→20:51)
[2019-10-02] MEDS: SODIUM CHLORIDE FLUSH 10ML SYR IVF SCH ×2 (07:53→20:51)
[2019-10-02 09:27] VITALS: BP 146/71
[2019-10-02 12:22] VITALS: BP 147/71
[2019-10-02] MEDS: CEFTRIAXONE PMX 2GM/50ML 50 ML IV SCH (13:09)
[2019-10-02 20:00] VITALS: BP 151/80
[2019-10-03 02:29] VITALS: BP 159/75
[2019-10-03 05:43] LABS: HCT (SEDRATE) 29.1 % (34.6-47.8)
[2019-10-03 05:45] LABS: MEAN CORPUSCULAR HGB CONC 31.2 g/dL (32.4-35.8); MEAN PLATELET VOLUME 8.3 fL (7.4-10.4); PLATELET COUNT 318 x10^3/uL (130-400); RED BLOOD COUNT 3.52 x10^6/uL (3.82-5.3); RED CELL DISTRIBUTION WIDTH 15.3 % (9.6-15.2)
[2019-10-03 05:59] LABS: ALANINE AMINOTRANSFERASE 13 U/L (12-78); ALBUMIN 1.4 g/dL (3.4-5.0); ANION GAP 6 mmol/L (5-15); CALCIUM 7.3 mg/dL (8.5-10.1); CHLORIDE 103 mmol/L (98-107); CREATININE 1.07 mg/dL (0.55-1.02)
[2019-10-03 06:07] LABS: ALKALINE PHOSPHATASE 91 U/L (45-117); BILIRUBIN,TOTAL 0.4 mg/dL (0.2-1.0); TOTAL PROTEIN 5.8 g/dL (6.4-8.2)
[2019-10-03] MEDS: OXYcodone IR 5MG TABLET PO PRN ×2 (06:19→21:02)
[2019-10-03 06:23] LABS: BASOPHILS # (AUTO) 0.14 x10^3/uL (0-0.1); BASOPHILS % (AUTO) 1 % (0-1); EOSINOPHILS % (AUTO) 1 % (1-7); LYMPHOCYTES # (AUTO) 1.21 x10^3/uL (1-3.4); LYMPHOCYTES % (AUTO) 10 % (22-44); MD SCAN; MONOCYTES # (AUTO) 0.32 x10^3/uL (0.2-0.8); MONOCYTES % (AUTO) 3 % (2-9); NEUTROPHILS # (AUTO) 10.19 x10^3/uL (1.8-6.8); NEUTROPHILS % (AUTO) 85 % (42-75)
[2019-10-03 08:27] VITALS: BP 155/74
[2019-10-03] MEDS: INSULIN LISPRO 100 UNITS/ML, PEN SQ-INSULIN SCH ×4 (08:34→21:02)
[2019-10-03] MEDS: SODIUM CHLORIDE FLUSH 10ML SYR IVF SCH ×2 (08:35→21:02)
[2019-10-03] MEDS: AMLODIPINE 5 MG TABLET PO SCH (08:35)
[2019-10-03] MEDS: INSULIN GLARGINE 100 UNITS/ML, PEN SQ-INSULIN SCH ×2 (08:35→21:03)
[2019-10-03] MEDS: CEFTRIAXONE PMX 2GM/50ML 50 ML IV SCH (12:41)
[2019-10-03 12:49] VITALS: BP 147/78
[2019-10-03] MEDS: ASA/APAP/ CAFFEINE TABLET PO PRN (17:17)
[2019-10-03 18:58] VITALS: BP 128/63
[2019-10-04 00:43] VITALS: BP 144/75
[2019-10-04] MEDS: OXYcodone IR 5MG TABLET PO PRN ×2 (05:52→20:54)
[2019-10-04 07:37] VITALS: BP 129/72
[2019-10-04] MEDS: INSULIN LISPRO 100 UNITS/ML, PEN SQ-INSULIN SCH ×4 (08:05→20:55)
[2019-10-04] MEDS: INSULIN GLARGINE 100 UNITS/ML, PEN SQ-INSULIN SCH ×2 (08:59→20:55)
[2019-10-04] MEDS: SODIUM CHLORIDE FLUSH 10ML SYR IVF SCH ×2 (08:59→20:54)
[2019-10-04] MEDS: AMLODIPINE 5 MG TABLET PO SCH (08:59)
[2019-10-04 12:17] VITALS: BP 144/70
[2019-10-04] MEDS: CEFTRIAXONE PMX 2GM/50ML 50 ML IV SCH (13:47)
[2019-10-04 19:36] VITALS: BP 149/73
[2019-10-05 01:34] VITALS: BP 142/70
[2019-10-05] MEDS: OXYcodone IR 5MG TABLET PO PRN ×2 (02:36→21:29)
[2019-10-05] MEDS: INSULIN LISPRO 100 UNITS/ML, PEN SQ-INSULIN SCH ×4 (07:00→21:20)
[2019-10-05 08:33] VITALS: BP 145/71
[2019-10-05] MEDS: SODIUM CHLORIDE FLUSH 10ML SYR IVF SCH ×2 (09:00→20:36)
[2019-10-05 09:38] LABS: BASOPHILS # (AUTO) 0.03 x10^3/uL (0-0.1); BASOPHILS % (AUTO) 0 % (0-1); EOSINOPHILS # (AUTO) 0.07 x10^3/uL (0-0.4); EOSINOPHILS % (AUTO) 1 % (1-7); LYMPHOCYTES # (AUTO) 1.17 x10^3/uL (1-3.4); LYMPHOCYTES % (AUTO) 11 % (22-44); MD NO; MEAN CORPUSCULAR HEMOGLOBIN 26.2 pg (27.0-34.8); MEAN CORPUSCULAR HGB CONC 31.7 g/dL (32.4-35.8); MEAN PLATELET VOLUME 7.7 fL (7.4-10.4); MONOCYTES % (AUTO) 7 % (2-9); NEUTROPHILS # (AUTO) 8.84 x10^3/uL (1.8-6.8); NEUTROPHILS % (AUTO) 82 % (42-75); PLATELET COUNT 345 x10^3/uL (130-400); RED BLOOD COUNT 3.28 x10^6/uL (3.82-5.3); RED CELL DISTRIBUTION WIDTH 15.4 % (9.6-15.2)
[2019-10-05 09:47] LABS: ANION GAP 7 mmol/L (5-15); CALCIUM 7.5 mg/dL (8.5-10.1); CHLORIDE 102 mmol/L (98-107); CREATININE 1.08 mg/dL (0.55-1.02)
[2019-10-05] MEDS: AMLODIPINE 5 MG TABLET PO SCH (10:35)
[2019-10-05] MEDS: INSULIN GLARGINE 100 UNITS/ML, PEN SQ-INSULIN SCH ×2 (10:35→21:20)
[2019-10-05 13:22] VITALS: BP 150/73
[2019-10-05] MEDS: CEFTRIAXONE PMX 2GM/50ML 50 ML IV SCH (15:09)
[2019-10-05 19:50] VITALS: BP 145/69
[2019-10-05] MEDS: metFORMIN 500 MG TABLET PO SCH (20:36)
[2019-10-05] MEDS: ASA/APAP/ CAFFEINE TABLET PO PRN (21:20)
[2019-10-06 00:25] VITALS: BP 105/64
[2019-10-06] MEDS: OXYcodone IR 5MG TABLET PO PRN ×2 (04:00→22:43)
[2019-10-06] MEDS: INSULIN LISPRO 100 UNITS/ML, PEN SQ-INSULIN SCH ×4 (07:00→20:05)
[2019-10-06] MEDS ORDERED: CYCLOBENZAPRINE 10 MG TABLET PO PRN (08:30)
[2019-10-06 09:46] VITALS: BP 164/72
[2019-10-06] MEDS: SODIUM CHLORIDE FLUSH 10ML SYR IVF SCH ×2 (09:48→20:29)
[2019-10-06] MEDS: AMLODIPINE 5 MG TABLET PO SCH (09:48)
[2019-10-06] MEDS: metFORMIN 500 MG TABLET PO SCH ×2 (09:48→20:29)
[2019-10-06] MEDS: INSULIN GLARGINE 100 UNITS/ML, PEN SQ-INSULIN SCH ×2 (09:50→20:08)
[2019-10-06] MEDS: ASA/APAP/ CAFFEINE TABLET PO PRN (09:58)
[2019-10-06] MEDS: CEFTRIAXONE PMX 2GM/50ML 50 ML IV SCH (14:16)
[2019-10-06 15:01] VITALS: BP 142/74
[2019-10-06 15:04] VITALS: BP 137/74
[2019-10-06 19:27] VITALS: BP 157/72
[2019-10-07 00:41] VITALS: BP 139/67
[2019-10-07 05:05] LABS: ANION GAP 6 mmol/L (5-15); CALCIUM 7.4 mg/dL (8.5-10.1); CHLORIDE 103 mmol/L (98-107); CREATININE 0.96 mg/dL (0.55-1.02)
[2019-10-07 07:59] VITALS: BP 145/76
[2019-10-07] MEDS: INSULIN LISPRO 100 UNITS/ML, PEN SQ-INSULIN SCH ×4 (08:01→21:01)
[2019-10-07] MEDS: ASA/APAP/ CAFFEINE TABLET PO PRN (08:12)
[2019-10-07] MEDS: AMLODIPINE 5 MG TABLET PO SCH (08:12)
[2019-10-07] MEDS: metFORMIN 500 MG TABLET PO SCH ×2 (08:12→21:27)
[2019-10-07] MEDS: SODIUM CHLORIDE FLUSH 10ML SYR IVF SCH ×2 (08:12→21:28)
[2019-10-07] MEDS: INSULIN GLARGINE 100 UNITS/ML, PEN SQ-INSULIN SCH ×2 (10:00→21:02)
[2019-10-07] MEDS: CEFTRIAXONE PMX 2GM/50ML 50 ML IV SCH (13:17)
[2019-10-07 14:09] VITALS: BP 150/73
[2019-10-07] MEDS: LACTOBACILLUS CHEW TABLET PO SCH ×2 (14:13→21:25)
[2019-10-07 20:36] VITALS: BP 151/78
[2019-10-07] MEDS: OXYcodone IR 5MG TABLET PO PRN (21:27)
[2019-10-08 05:24] VITALS: BP 147/76
[2019-10-08 07:12] VITALS: BP 127/71
[2019-10-08] MEDS: INSULIN LISPRO 100 UNITS/ML, PEN SQ-INSULIN SCH ×2 (07:46→10:44)
[2019-10-08] MEDS: AMLODIPINE 5 MG TABLET PO SCH (09:15)
[2019-10-08] MEDS: SODIUM CHLORIDE FLUSH 10ML SYR IVF SCH (09:15)
[2019-10-08] MEDS: LACTOBACILLUS CHEW TABLET PO SCH (09:15)
[2019-10-08] MEDS: metFORMIN 500 MG TABLET PO SCH (09:15)
[2019-10-08] MEDS: INSULIN GLARGINE 100 UNITS/ML, PEN SQ-INSULIN SCH (09:30)
[2019-10-08] MEDS: CEFTRIAXONE PMX 2GM/50ML 50 ML IV SCH (10:01)
[2019-10-08] MEDS ORDERED: AMLO-150 PO ×2 (10:40)
[2019-10-18] MEDS ORDERED: CARV3.1212 PO (10:19)
[2019-10-18] MEDS ORDERED: FERR-51 PO (10:19)
[2019-10-18] MEDS ORDERED: CIPR500T87 PO (10:19)
[2019-10-18] MEDS ORDERED: SENN-193 PO (10:19)
[2019-10-18] MEDS ORDERED: ACET325T26 PO (10:19)
[2019-10-18] MEDS ORDERED: OXYC5TAB3 PO (10:19)
== END 2019-10-08 12:35 | disposition home or self-care (01) | DRG 871 ==
LOC: ED 01:17 → EDIP 02:20 → 4NE 10:49 → 4WST 09-28 15:40
PROVIDERS: ADMIT Internal Medicine; ATTEND Hospitalist
PROC: 02HV33Z Insertion of Infusion Device into Superior Vena Cava, Percutaneous Approach (ICD-10-PCS; principal; 2019-09-29)
DX: A41.51 Sepsis due to Escherichia coli [E. coli] (principal); N17.0 Acute kidney failure with tubular necrosis; J96.01 Acute respiratory failure with hypoxia; E87.1 Hypo-osmolality and hyponatremia; N13.6 Pyonephrosis; D61.818 Other pancytopenia; R65.20 Severe sepsis without septic shock; I10 Essential (primary) hypertension; D69.59 Other secondary thrombocytopenia; E83.42 Hypomagnesemia; D63.8 Anemia in other chronic diseases classified elsewhere; E66.9 Obesity, unspecified; M19.90 Unspecified osteoarthritis, unspecified site; M47.9 Spondylosis, unspecified; E83.51 Hypocalcemia; G89.29 Other chronic pain; E88.09 Other disorders of plasma-protein metabolism, not elsewhere classified; Z20.828 Contact with and (suspected) exposure to other viral communicable diseases; E86.9 Volume depletion, unspecified; B96.20 Unspecified Escherichia coli [E. coli] as the cause of diseases classified elsewhere; E86.0 Dehydration; G43.909 Migraine, unspecified, not intractable, without status migrainosus; Z68.37 Body mass index [BMI] 37.0-37.9, adult; Z79.899 Other long term (current) drug therapy; Z90.710 Acquired absence of both cervix and uterus; Z79.84 Long term (current) use of oral hypoglycemic drugs; Z88.8 Allergy status to other drugs, medicaments and biological substances; Z87.442 Personal history of urinary calculi; E11.65 Type 2 diabetes mellitus with hyperglycemia
CPT/HCPCS: 36415; 36573; 70450; 71045; 72148; 74176; 76700; 76770; 80048; 80053; 80061; 81001; 82010; 82800; 82947; 82962; 83010; 83036; 83605; 83615; 83690; 83735; 83880; 84100; 84145; 84439; 84443; 84484; 84550; 85025; 85384; 85610; 85651; 85730; 86140; 87040; 87077; 87086; 87186; 87635; 93005; 93308; 93321; 93325; 96374; 96375; 96376; 99291; G0378; J0690; J0696; J1815; J2185; J2405; J2543; J3370; Q0162; C1751; J2270; J3475; J7030; J7050

== ENCOUNTER → 2019-11-01 | Outpatient (CLI) | payer OTHER ==
[~2019-11-01] MED LIST: ACET325T26 PO; AMIT25TA PO; AMLO-150 PO; CARV3.1212 PO; CIPR500T87 PO; FERR-51 PO; GABA-826 PO; GLIP5TAB10 PO; LISI5TAB7 PO; METF10007 PO; OMNIPAQUE 350 MG/ML, 100ML BOTTLE ONE; OXYC5TAB3 PO; ROPI0.254 PO; SENN-193 PO; SIMV20TA19 PO
== END | disposition home or self-care (01) ==
LOC: CFH 11:09
PROVIDERS: ATTEND Internal Medicine Infectious Disease
DX: K80.20 Calculus of gallbladder without cholecystitis without obstruction (principal); N28.81 Hypertrophy of kidney; M51.36 Other intervertebral disc degeneration, lumbar region; N15.1 Renal and perinephric abscess
CPT/HCPCS: 74177; Q9967

== ENCOUNTER → 2019-11-28 | Outpatient (CLI) | payer OTHER | END | disposition home or self-care (01) | LOC: CFH 12:53 | PROVIDERS: ATTEND Internal Medicine Infectious Disease | DX: N15.9 Renal tubulo-interstitial disease, unspecified (principal); N15.1 Renal and perinephric abscess; R10.32 Left lower quadrant pain | CPT/HCPCS: 74177; Q9967 ==

== ENCOUNTER → 2019-12-14 | Outpatient (CLI) | payer OTHER | END | disposition home or self-care (01) | LOC: RAD 16:22 | PROVIDERS: ATTEND Internal Medicine Infectious Disease | DX: N15.1 Renal and perinephric abscess (principal); R10.32 Left lower quadrant pain; M47.9 Spondylosis, unspecified | CPT/HCPCS: 74177; Q9967 ==

== ENCOUNTER → 2019-12-28 | Outpatient (CLI) | payer OTHER ==
[~2019-12-28] MED LIST changes: -OMNIPAQUE 350 MG/ML, 100ML BOTTLE ONE
== END | disposition home or self-care (01) ==
LOC: RAD 16:53
PROVIDERS: ATTEND Internal Medicine Infectious Disease
DX: T82.868A Thrombosis due to vascular prosthetic devices, implants and grafts, initial encounter (principal); I82.622 Acute embolism and thrombosis of deep veins of left upper extremity; Y83.8 Other surgical procedures as the cause of abnormal reaction of the patient, or of later complication, without mention of misadventure at the time of the procedure; Y92.89 Other specified places as the place of occurrence of the external cause

== ENCOUNTER → 2019-12-29 | Outpatient (CLI) | payer OTHER | END | disposition home or self-care (01) | LOC: RAD 11:49 | PROVIDERS: ATTEND Internal Medicine Infectious Disease | DX: Z45.2 Encounter for adjustment and management of vascular access device (principal); I82.602 Acute embolism and thrombosis of unspecified veins of left upper extremity; I10 Essential (primary) hypertension; E11.9 Type 2 diabetes mellitus without complications; D63.8 Anemia in other chronic diseases classified elsewhere; Z79.2 Long term (current) use of antibiotics; Z79.899 Other long term (current) drug therapy | CPT/HCPCS: 36573; C1751 ==

== ENCOUNTER → 2020-01-23 | Outpatient (CLI) | payer OTHER ==
[~2020-01-23] MED LIST changes: +OMNIPAQUE 350 MG/ML, 100ML BOTTLE ONE
== END | disposition home or self-care (01) ==
LOC: CFH 09:07
PROVIDERS: ATTEND Internal Medicine Infectious Disease
DX: K80.20 Calculus of gallbladder without cholecystitis without obstruction (principal); N15.1 Renal and perinephric abscess
CPT/HCPCS: 74177; Q9967

== ENCOUNTER → 2020-04-05 | Outpatient (CLI) | payer OTHER ==
[~2020-04-05] MED LIST changes: -OMNIPAQUE 350 MG/ML, 100ML BOTTLE ONE; -OXYC5TAB3 PO; +OXYC5TAB98 PO
== END | disposition home or self-care (01) ==
LOC: RAD 10:47
PROVIDERS: ATTEND Internal Medicine Infectious Disease
DX: I82.622 Acute embolism and thrombosis of deep veins of left upper extremity (principal)

== ENCOUNTER 2020-05-09 22:59 | Emergency (ER) | payer OTHER ==
[~2020-05-09] VITALS: Ht 177.8 cm; Wt 106.0 kg
[2020-05-09] MEDS ORDERED: METOCLOPRAMIDE 5 MG/ML, 2ML IVPush ONE (23:30)
[2020-05-09] MEDS ORDERED: KETOROLAC 30 MG/1 ML IVPush ONE (23:30)
[2020-05-09] MEDS ORDERED: SODIUM CHLORIDE FLUSH 10ML SYR IVF ONE (23:30)
[2020-05-09] MEDS ORDERED: SODIUM CHLORIDE 0.9% 1,000ML IVBOLUS ONE (23:30)
[2020-05-09] MEDS ORDERED: DIPHENHYDRAMINE 50 MG/ML, 1ML IVPush ONE (23:30)
[2020-05-09] MEDS ORDERED: DIPHENHYDRAMINE 50 MG/ML, 1ML ONE (23:47)
[2020-05-09] MEDS ORDERED: KETOROLAC 30 MG/1 ML ONE (23:47)
[2020-05-09] MEDS ORDERED: METOCLOPRAMIDE 5 MG/ML, 2ML ONE (23:47)
--- NOTE | 2020-05-10 00:27 | NUR ---
pt in bed, kicking and shifting, complaining of headache. md at bedside to assess. pt on spo2 and bp cuff, bed rails up bilaterally, son at bedside. call lightn within reach.
[2020-05-10 00:34] LABS: BASOPHILS % (AUTO) 1 % (0-1); EOSINOPHILS % (AUTO) 1 % (1-7); LYMPHOCYTES % (AUTO) 19 % (22-44); MD NO; MEAN CORPUSCULAR HEMOGLOBIN 26.9 pg (27.0-34.8); MEAN CORPUSCULAR HGB CONC 33.4 g/dL (32.4-35.8); MEAN PLATELET VOLUME 8.8 fL (7.4-10.4); MONOCYTES % (AUTO) 4 % (2-9); NEUTROPHILS % (AUTO) 75 % (42-75); PLATELET COUNT 239 x10^3/uL (130-400); RED BLOOD COUNT 4.89 x10^6/uL (3.82-5.3)
[2020-05-10 00:45] LABS: ALBUMIN 3.4 g/dL (3.4-5.0); ANION GAP 10 mmol/L (5-15); CALCIUM 8.7 mg/dL (8.5-10.1); CHLORIDE 107 mmol/L (98-107); CREATININE 1.17 mg/dL (0.55-1.02)
--- NOTE | 2020-05-10 00:45 | NUR ---
pt states shes starting to feel better, up to ambulate to bathroom walked with steady gait and good balance. returned safely to bed, pt and family updated on plan of care. pt in bed still kicking and restless but with even unlabored respirations no signs or symptoms of acute distress noted.
[2020-05-10 01:09] VITALS: BP 144/76
== END 2020-05-10 01:20 | disposition home or self-care (01) ==
LOC: ED 05-10 01:00
DX: G43.009 Migraine without aura, not intractable, without status migrainosus (principal); R11.2 Nausea with vomiting, unspecified; I10 Essential (primary) hypertension; E11.9 Type 2 diabetes mellitus without complications; R94.31 Abnormal electrocardiogram [ECG] [EKG]
CPT/HCPCS: 36415; 70450; 80048; 82040; 85025; 93005; 96374; 96375; 99285; J1200; J1885; J2765